=== PATIENT | male | born 1980 | race Caucasian/White ===

== ENCOUNTER 2023-02-15 08:28 | Emergency (ER) | payer SELFPAY ==
[~2023-02-15] VITALS: Ht 167.6 cm; Wt 82.0 kg
[2023-02-15 08:31] VITALS: BP 121/77; PULSE 112; RESP 20; TEMP 99.1; O2SAT 97
[2023-02-15 12:33] LABS: BASOPHILS % 0.2 % (0.0-2.0); EOSINOPHILS % 0.1 % (0.0-5.0); HEMATOCRIT. 44.2 % (42.0-52.0); HEMOGLOBIN. 15.4 g/dL (14.0-18.0); LYMPHOCYTES % 7.1 % (20.0-50.0); MEAN CORPUSCULAR HEMOGLOBIN 32.9 pg (28.0-32.0); MEAN CORPUSCULAR VOLUME 94.1 fL (80.0-94.0); MEAN PLATELET VOLUME 8.4 fl (7.4-10.4); MONOCYTES % 7.4 % (2.0-8.0); NEUTROPHILS % 85.2 % (40.0-76.0); PLATELET 251 x1000/uL (130-400); RED BLOOD CELL COUNT 4.69 mill/uL (4.7-6.1); RED CELL DISTRIBUTION WIDTH 13.2 % (11.6-14.6)
[2023-02-15 12:47] LABS: CHLORIDE 105 mEq/L (98-107)
[2023-02-15 12:56] LABS: ETHANOL BLOOD < 10 mg/dL (-10)
[2023-02-15] MEDS ORDERED: TETANUS, DIPHTHERIA, PERTUSSIS VAC/PF 0.5ML (>10YR OLD) IM ONE (14:00)
[2023-02-15] MEDS ORDERED: BACITRACIN ZINC OINT UDPKT TOP NR (14:00)
== END 2023-02-15 15:01 | disposition home or self-care (01) ==
LOC: ER 08:28
DX: S61.011A Laceration without foreign body of right thumb without damage to nail, initial encounter (principal); S01.81XA Laceration without foreign body of other part of head, initial encounter; F15.10 Other stimulant abuse, uncomplicated; X58.XXXA Exposure to other specified factors, initial encounter; Y93.89 Activity, other specified; Y92.89 Other specified places as the place of occurrence of the external cause; Y99.8 Other external cause status
CPT/HCPCS: 12001; 12011; 36415; 80053; 80320; 85025; 99284; G0480

== ENCOUNTER 2023-08-30 18:50 | Emergency (ER) | payer SELFPAY ==
[~2023-08-30] VITALS: Ht 177.8 cm; Wt 75.0 kg
[2023-08-30 18:55] VITALS: BP 114/70; PULSE 102; RESP 18; TEMP 98.7; O2SAT 99
== END 2023-08-30 19:18 | disposition left against medical advice (07) ==
LOC: ER 18:50
DX: R41.82 Altered mental status, unspecified (principal)
CPT/HCPCS: 99283